=== PATIENT | female | born 1975 | race Caucasian/White ===

== ENCOUNTER 2023-01-24 09:42 | Outpatient (OUT) | payer BC, SELFPAY ==
[2023-01-24 10:08] LABS: Basophils Absolute Auto 0.1 10^3/uL (0.0-0.1); Basophils Percent Auto 1.1 % (0.2-2.0); Eosinophils Absolute Auto 0.2 10^3/uL (0.0-0.7); Hematocrit 44.6 % (36.0-48.0); Lymphocytes Absolute Auto 1.5 10^3/uL (1.2-3.8); Lymphocytes Percent Auto 26.5 % (20.5-60.0); Mean Corpuscular HGB Conc 33.6 g/dL (29.9-35.2); Mean Corpuscular Hemoglobin 30.9 pg (26.7-34.0); Mean Corpuscular Volume 91.8 fL (81.0-99.0); Mean Platelet Volume 11.2 fL (9.5-13.5); Monocytes Absolute Auto 0.5 10^3/uL (0.3-0.8); Monocytes Percent Auto 9.8 % (1.7-12.0); Neutrophils Absolute Auto 3.2 10^3/uL (1.4-6.5); Neutrophils Percent Auto 58.6 % (43.0-75.0); Platelet Count 215 10^3/uL (150-450); Red Blood Count 4.86 10^6/uL (4.20-5.40); Red Cell Distribution Width 12.3 % (11.0-15.0); White Blood Count 5.5 10^3/uL (4.0-11.0)
[2023-01-24 10:35] LABS: Amphetamine Screen Urine NEGATIVE (NEGATIVE); Barbiturates Screen Urine NEGATIVE (NEGATIVE); Benzodiazepines Screen Urine NEGATIVE (NEGATIVE); Buprenorphine Screen Urine NEGATIVE (NEGATIVE); Cannabinoid Screen Urine NEGATIVE (NEGATIVE); Cocaine Screen Urine NEGATIVE (NEGATIVE); Methadone Screen Urine NEGATIVE (NEGATIVE); Methamphetamines Screen Urine NEGATIVE (NEGATIVE); Opiate Screen Urine NEGATIVE (NEGATIVE); Oxycodone Screen Urine NEGATIVE (NEGATIVE); Phencyclidine Screen Urine NEGATIVE (NEGATIVE); Tricyclic Antidepressant Urine NEGATIVE (NEGATIVE)
[2023-01-24 10:49] LABS: Estimated Average Glucose 108 mg/dL; Glycohemoglobin A1C 5.4 % (4.5-6.2)
[2023-01-24 11:37] LABS: Alanine Aminotransferase 19 U/L (14-59); Albumin Globulin Ratio 1.2; Albumin Level 3.9 g/dL (3.4-5.0); Alkaline Phosphatase 60 U/L (46-116); Anion Gap 16.1; Aspartate Amino Transferase 14 U/L (15-37); BUN Creatinine Ratio 23.5; Bilirubin Total 0.4 mg/dL (0.2-1.0); Carbon Dioxide 28.6 mmol/L (21.0-32.0); Chloride 102 mmol/L (98-107); Chol HDL Ratio 3.5; Cholesterol 189 mg/dL (<=200); Estimated GFR (African America >60 (>=60); Estimated GFR (Non-African Ame >60 (>=60); Globulin 3.3 g/dL; Glucose 99 mg/dL (74-106); HDL Cholesterol 54 mg/dL (40-60); LDL Cholesterol Calculated 114.2 mg/dL; Potassium 3.7 mmol/L (3.5-5.1); Sodium 143 mmol/L (136-145); Total Protein 7.2 g/dL (6.4-8.2); Triglycerides 104 mg/dL (<=150); VLDL CHOLESTEROL 20.8 mg/dL
[2023-01-24 11:42] LABS: TSH W/ REFLEX FT4 5.464 (0.358-3.740)
[2023-01-24 12:17] LABS: Free T4 0.83 ng/dL (0.76-1.46)
[2023-01-25 04:07] LABS: HIV Ab/p24 Ag Screen Non Reactive (Non Reactive)
[2023-01-25 06:08] LABS: HCV Ab Non Reactive (Non Reactive)
== END 2023-01-24 09:43 | disposition home or self-care (01) ==
LOC: LAB 09:48
PROVIDERS: PCP Nurse Practitioner Primary Care; Visit Provider Nurse Practitioner Primary Care
DX: Z00.00 Encounter for general adult medical examination without abnormal findings (principal); Z11.59 Encounter for screening for other viral diseases; Z11.4 Encounter for screening for human immunodeficiency virus [HIV]; Z13.6 Encounter for screening for cardiovascular disorders; Z13.29 Encounter for screening for other suspected endocrine disorder
CPT/HCPCS: 36415; 80053; 80061; 80307; 83036; 84439; 84443; 85025; 86803; 87389

== ENCOUNTER 2023-02-07 09:16 | Outpatient (OUT) | payer BC, SELFPAY ==
--- NOTE | 2023-02-07 09:19 | MM_ITS ---
Patient Name: THONG SUAREZ MR#: [id number] : 1975 Exam Date: 02/07/2023 Ordering Doctor: JOSE GUADALUPE HERNANDEZ RADIOLOGY REPORT PROCEDURE: MM TOMOSYNTHESIS SCREENING BI COMPARISON: None. INDICATIONS: Screening Calculator Name NCI Breast Cancer Risk Assessment Tool 5 Year Breast Cancer Risk 0.90% Lifetime Breast Cancer Risk 9.30% Personal Breast Cancer No Personal Ovarian Cancer No Treatments None Family Cancers None LOCATION: [facility] BREAST COMPOSITION: Scattered areas fibroglandular density. FINDINGS: DIAGNOSTIC CATEGORY 1--NEGATIVE. Scattered benign-appearing lymph nodes are present. RIGHT BREAST: No significant suspicious finding. LEFT BREAST: No significant suspicious finding. RECOMMENDATIONS: ROUTINE MAMMOGRAM AND CLINICAL EVALUATION IN 12 MONTHS. PLEASE NOTE: A NORMAL MAMMOGRAM DOES NOT EXCLUDE THE POSSIBILITY OF BREAST CANCER. A CLINICALLY SUSPICIOUS PALPABLE LUMP SHOULD BE BIOPSIED. Dictated by: Asad Mancera MD on 02/07/2023 at 12:40 Approved by: Asad Mancera MD on 02/07/2023 at 12:41
== END 2023-02-07 09:17 | disposition home or self-care (01) ==
LOC: MAMMO 09:16
PROVIDERS: PCP Nurse Practitioner Primary Care; Visit Provider Nurse Practitioner Primary Care
DX: Z12.31 Encounter for screening mammogram for malignant neoplasm of breast (principal)
CPT/HCPCS: 77063; 77067

== ENCOUNTER 2023-02-22 07:51 | Outpatient (OUT) | payer BC, SELFPAY ==
--- NOTE | 2023-02-22 08:32 | PM.CN ---
Consult Note: HPI Data of Consult Patient: new to practice Consult date: 02/22/23 Requesting Physician: Jocelyn Mcduffie NP Primary Care Provider: JOSE GUADALUPE HERNANDEZ APRN-TEMI Consult Narrative Reason for consult: establish for bilateral hips and bilateral leg pain Narrative: Lidia Still a pleasant 47 year old female presents for evaluation and management of chronic bilateral hip and bilateral leg pain. Experiences intermittent sharp hot shooting pain. At this time 0/10. Has found benefit from tizanidine and gabapentin, has not filled this in years was utilizing an old script. Patient notes no recent PT or HEP. Has not been evaluated by NS since her L4 hemilaminectomy in 2013. [facility] but does not recall what they did for her. Patient here today to establish care. cc:: CC: Jocelyn Mcduffie NP Review of Systems ROS Status of ROS 10 or more systems reviewed and unremarkable except as noted in history and below Musculoskeletal Reports: back pain, extremity pain and joint pain Exam Constitutional Documenting provider has reviewed patient's vital signs: yes Common normals: no apparent distress, oriented x3, healthy appearing, alert and well nourished General appearance: cooperative [facility] Common normals: normocephalic, hearing grossly normal bilaterally and moist oral mucous membranes Head and scalp: normocephalic Eye Common normals: PERRL Pupil: PERRL Neck & C-Spine Common normals: full ROM General: normal visual inspection Chest Common normals: inspection of chest normal Respiratory Common normals: normal respiratory effort, no retractions and no use of accessory muscles Back & Pelvis Lumbar spine/lower back: straight leg raise negative bilaterally Sacroiliac joints: SI joint(s) abnormal (pain with bilateral MARCOS FADIR thigh thrust) Other: reports intermittent numbness weakness burning sharp hot pain that radiates from lumbar spine to anterior thighs down to feet Extremity Common normals: normal to inspection and full ROM Neuro Common normals: oriented x3, CN's II-XII intact bilaterally, moves all extremities, no focal motor deficits, no sensory deficits noted, deep tendon reflexes 2+ bilaterally and gait normal Sensorium/orientation: alert Motor exam: strength 5/5 throughout and no movement abnormalities noted Psych Common normals: mental status grossly normal, thought process normal, cooperative, affect normal, speech normal and activity/motor behavior normal Speech: normal speech Thought process: normal thought process Assessment and Plan Assessment and Plan (1) Lumbar radiculopathy: (2) Myofascial pain: (3) Obesity: Assessment and Plan: The patient was counseled that proper dietary changes and consistent participation in a home exercise plan can lead to weight loss. Weight loss can help to improve functionality in patients with chronic pain.? (4) Depression: Assessment and Plan: continue f/u with PCP Plan PT for lumbar radiculopathy MRI without contrast of lumbar spine after completion of PT continue gabapentin 300mg daily as needed and tizanidine 4mg BID PRN, will refill today f/u 3 months, sooner if needed
--- OUTSIDE RECORDS SUMMARY | 2023-02-22 10:30 | XMS_ITS | CCD ---
Author Name Unknown Address [address] [place] [address] Organization [facility] Care Team Providers Care Senior Software Analyst Name Role Phone HOUSE, DR RAMSEY Attending Unavailable HOUSE, DR RAMSEY Consulting Unavailable HOUSE, DR RAMSEY Primary Care Unavailable HOUSE, DR RAMSEY Admitting Unavailable Problems Active Problems Problem Classification Problem Date Documented Da te Episodic/Chronic Unclassified (2 sources) CONTACT W/AND (SUSP) EXPOS COVID-19; Translations: [CONTACT W/AND (SUSP) EXPOS COVID-19] Onset: 11-18-2021 Viral infection (1 source) COVID-19; Translations: [COVID-19] Onset: 11-18-2021 Past or Other Problems Problem Classification Problem Date Documented Da te Episodic/Chronic Unclassified (1 source) CONTACT W/AND (SUSP) EXPOS COVID-19; Translations: [CONTACT W/AND (SUSP) EXPOS COVID-19] Onset: 11-14-2021 Results Test Name Value Interpretation Reference Range Facil ity Covid-19 PCR (CVDTBH)on 11-03 SARS-CoV-2 (COVID-19) RNA CAMILA+probe Ql (Unsp spec) Detected Critically abnormal NOT DETECTED [facility] Comment on above: Result Comment: This test is not yet elsa roved or cleared by the [place] FDA. When there are no FDA-approved or cleared tests available, and other criteria are met, FDA can make tests available under an emergency access mechanism called an Emergency Use Authorization (EUA). The EUA for this test is supported by the Director Metabolism of Health and Human Service's (HHS's) declaration that circumstances exist to justify the emergency use of in vitro diagnostics for the detection and/or diagnosis of the virus that causes COVID-19. This EUA will remain in effect (meaning this test can be used) for the duration of the COVID-19 declaration justifying emergency of IVDs, unless it is terminated or revoked by FDA (after which the test may no longer be used). Performed By: #### [facility] #### [facility] [address] [place], [place] [address] Dr. David Jesus Encounters Encounter Date Encounter Type Care Provider Facility Start: 11-14-2021 End: 11-14-[address] ROXY OCHOA Facility: Payers Date Payer Category Payer Unknown [id number] 1960 Private Health Insurance [id number] Summary Purpose Family History No Family History Records Found Advance Directives No Advanced Directives Records Found Additional Source Comments INFORMATION SOURCE (unrecogn ized section and content) DATE CREATED AUTHOR 12/03/2021 [facility] FOR RECORDS PERTAINING TO PATIENTS WHO ARE OR HAVE BEEN ENROLLED IN A CHEMICAL DEPENDENCY/SUBSTANCEABUSE PROGRAM, SOME INFORMATION MAY BE OMITTED. This clinical summary was aggregated from multiple sources. Caution should be exercised in using it in the provision of clinical care. This summary normalizes information from multiple sources, and as a consequence, information in this document may materially change the coding, format and clinical context of patient data. In addition, data may be omitted in some cases. CLINICAL DECISIONS SHOULD BE BASED ON THE PRIMARY CLINICAL RECORDS. [employer] provides no warranty or guarantee of the accuracy or completeness of information in this document.
== END 2023-02-22 07:52 | disposition home or self-care (01) ==
LOC: PM 07:51
PROVIDERS: PCP Nurse Practitioner Primary Care; Visit Provider Nurse Practitioner
DX: M54.16 Radiculopathy, lumbar region (principal); M79.18 Myalgia, other site; E66.9 Obesity, unspecified
CPT/HCPCS: G0463

== ENCOUNTER 2024-10-05 18:32 | Emergency (ER) | payer OTHER, SELFPAY ==
--- OUTSIDE RECORDS SUMMARY | 2024-01-29 05:30 | XMS_ITS ---
Author Organization [facility] Address [address] [place], [place] [id number] Care Team Providers Care Decontamination Worker Name Role Phone Reba Varma Primary Care Provider Brittney Birch Unavailable [phone] Afshin Reardon Unavailable [phone] REASON FOR VISIT wellness Social History Sex Assigned At : Social History Observation Description Sex Assigned At Female Encounters Encounter Location Date Provider Diagnosis [facility] [address] [place] [address] 01/29/2024 Afshin Reardon Plan Of Treatment No Information Progress Notes * Lidia SUAREZDOB: [birth year] (48 yo F)Acc No.[id number]:01/29/2024 Progress Notes Patient: Lidia MAX Provider: Errol Reardon PA-C :1975 A ge:48 Y S ex:Female Date:01/29/2024 [id number] Pcp:Reba Varma Subjective: * Chief Complaints: * 1 . Wellness. * Medical History: Objective: * Vitals: Assessment: Plan: * Treatment: Care Plan: * Problems: * Billing Information: * Visit Code: * Procedure Codes: * Electronic signature of SONYA Edouard on 10/05/2024 at 06:40 PM EDT Sign off status: Pending * Provider: Errol Reardon PA-C Date: 1 03/30/2023 Generated for Dank stanley/Simón/Scooter on: 0 10/05/2024 06:40 PM EDT
--- OUTSIDE RECORDS SUMMARY | 2024-08-16 04:30 | XMS_ITS ---
Author Organization [facility] Address [address] [place] [address] Care Team Providers Care Waredresser Name Role Phone Daniele Ring Primary Care Provider [phone] REASON FOR VISIT Recheck BP Encounters Encounter Location Date Provider Diagnosis [facility] [address] [place] [address] 08/16/2024 Daniele Ring Plan Of Treatment No Information Progress Notes * NELSY SANDIP CRISTINAWILDDOB: [birth year] (48 yo F)Acc No.[id number]:08/16/2024 Progress Notes Patient: CRISTINA HOLLEYELA Appointment Provider: Bert MONTERO DO :1975 A ge:48 Y S ex:Female Date:08/16/2024 Address:[address] [place], [place] [address] Subjective: * Chief Complaints: * 1 . Recheck BP. * Medical History: Objective: * Vitals: Assessment: Plan: * Treatment: * Images: * Electronic signature of Daniele Ring DO on 10/05/2024 at 06:40 PM EDT Sign off status: Pending * Appointment Provider: Bert MONTERO DO Date: 08/16/2024 Generated for Dank stanley/Simón/Purviitting on: 10/05/2024 06:40 PM EDT
[2024-10-05 18:35] VITALS: BP 158/96; PULSE 90; TEMP 37.1; O2SAT 98; BMI 38.3
--- OUTSIDE RECORDS SUMMARY | 2024-10-05 18:40 | XMS_ITS | CCD ---
Author Organization [facility] Care Team Providers Care Sql Developer Name Role Phone HOUSE, DR RAMSEY Attending Unavailable HOUSE, DR RAMSEY Consulting Unavailable HOUSE, DR RAMSEY Primary Care Unavailable [place], DR RAMSEY Admitting Unavailable NON STAFF Primary Care Provider UnavailMD Samson Grey Jr Emergency Provider Dave - DO Enrrique LORENZO Attending Provider [facility] Primary Care Provider DO Twin Shaffer Attending Provider DO Daniele Hector Referring Provider [facility] Primary Care Provider [phone] Twin Shaffer DO Attending Provider [phone] Daniele Hector DO Referring Provider Daniele Hector DO Attending Provider [facility] Primary Care Unavaila ble Daniele Hector Referring Unavailable Twin Shaffer Admitting Unavailable [place]er Attending Unavailable Daniele Hector Referring Unavailable Twin Shaffer Admitting Unavailable Twin Sh[place]er Attending Unavailable [facility] Primary Care Unavaila ble NON STAFF Primary Care Unavailable Daves - Enrrique LORENZO Admitting Unavailable Daves - Enrrique LORENZO Attending Unavailable Daniele Hector Admitting Unavailable Daniele Hector Attending Unavailable Medications Current Medications Medication Drug Class(es) Dates Sig (Normalized) Sig (Original) Albuterol-Budesonid e (4 sources) Start: 06-26-2023 Albuterol-Budeson jaime Active 2 INH INHALATION Every 4 hours June 26, 2023 12:00am Albuterol-Budesonid e 90-80 mcg/actuation HFA aerosol inhaler (2 sources) Start: 06-26-2023 Albuterol-Budeson jaime 90-80 mcg/actuation HFA aerosol inhaler Active 2 INH INHALATION Every 4 hours as needed for shortness of breath June 26, 2023 12:00am ARIPiprazole 2 mg oral tablet (6 sources) Atypical Antipsychotic Start: 06-26-2023 take 1 tablet by mouth at bedtime Aripiprazole 2 mg tablet Active 2 MG PO Bedtime June 26, 2023 12:00am ibuprofen 600 mg oral tablet (6 sources) Nonsteroidal Anti-inflammatory Drug Start: 06-27-2023 take 1 tablet by mouth every eight hours as needed for pain Ibuprofen 600 mg tablet Active 600 MG PO Q8H as needed for pain June 27, 2023 12:00am montelukast 10 mg oral tablet (6 sources) Leukotriene Receptor Antagonist Start: 06-26-2023 take 1 tablet by mouth once daily Montelukast (Singulair) 10 mg tablet Active 10 MG PO Daily June 26, 2023 12:00am 24 hr propranolol hydrochloride 60 mg extended release oral capsule (6 sources) beta-Adrenergic Ayse Start: 06-26-2023 take 1 capsule by mouth once daily Propranolol 60 mg capsule,extended release 24 hr Active 60 MG PO Daily June 26, 2023 12:00am traZODone hydrochloride 100 mg oral tablet (6 sources) Serotonin Reuptake Inhibitor Start: 06-26-2023 take 1 tablet by mouth at bedtime as needed Trazodone 100 mg tablet Active 100 MG PO Bedtime as needed for insomnia June 26, 2023 12:00am 24 hr venlafaxine 37.5 mg extended release oral capsule (6 sources) Serotonin and Norepinephrine Reuptake Inhibitor Start: 06-26-2023 take 1 capsule by mouth once daily Venlafaxine 37.5 mg capsule,extended release 24hr Active 37.5 MG PO Daily June 26, 2023 12:00am Problems Active Problems Problem Classification Problem Date Documented Date Episodic/Chronic Asthma (1 source) Unspecified asthma, uncomplicated; Translations: [Unspecified asthma, uncomplicated] Onset: 06-04-2024 Chronic E Codes: Fall (6 sources) Fall on same level from slipping; Translations: [Fall on same level from slipping, tripping and stumbling without subsequent striking against object, initial encounter] 06-27-2023 Episodic Other screening for suspected conditions (not mental disorders or infectious disease) (2 sources) Encounter for screening for malignant neoplasm of cervix; Translations: [Encounter for screening for cardiovascular disorders] Onset: 01-04-2024 Episodic Unclassified (2 sources) CONTACT W/AND (SUSP) EXPOS COVID-19; Translations: [CONTACT W/AND (SUSP) EXPOS COVID-19] Onset: 11-18-2021 Unclassified (1 source) Obesity, class 2; Translations: [Obesity, class 2] Onset: 01-04-2024 Viral infection (1 source) COVID-19; Translations: [COVID-19] Onset: 11-18-2021 Past or Other Problems Problem Classification Problem Date Documented Da te Episodic/Chronic Superficial injury; contusion (19 sources) Contusion of multiple sites of upper limb; Translations: [Contusion of right upper arm, initial encounter] Onset: 07-26-2023 06-27-2023 Episodic Unclassified (1 source) CONTACT W/AND (SUSP) EXPOS COVID-19; Translations: [CONTACT W/AND (SUSP) EXPOS COVID-19] Onset: 11-14-2021 Results Test Name Value Interpretation Reference Range Facility IGP,Aptima HPV,CtNg Age Gdln on 06-30-2024 IGP, Age Gdln Note Normal . [facility] Comment on above: Order Comment: Marimar aguirre for Exam Cervical cancer screening Specimen Comment: [id number] Result Comment: TEST S RESULT FLAG UNITS REF RANGE LAB Clinician Provided Cytology Information No. of containers..01 ThinPrep Vial Age Algo ACOG Ade... 30-65 01 FLAG LEGEND: L-Low Normal,H-High Normal,LL-Alert Low,HH-Alert High <-Panic Low,>-Panic High,A-Abnormal,AA-Critical Abnormal Performed at: 01 =[address] [id number] Ingrid Tomlin MD, Performed By: #### P AP [id number] #### [facility] , PAP HPV HR Negative Normal Negative [facility] Comment on above: Order Comment: Reaso n for Exam Cervical cancer screening Specimen Comment: [id number] Result Comment: This nucleic acid amplification test detects fourteen high- risk HPV types (16,18,31,33,35,39,45,51,52,56,58,59,66,68) without differentiation. Performed at: =[facility] [id number] Fiber Optic Assembler: Ingrid Tomlin MD, Phone: [phone] Performed at: [facility] [id number] Fiber Optic Assembler: Ingrid Tomlin MD, Phone: [phone] PERFORMED BY: [place] [address] [place] [address] PATHOLOGIST BIOFUELS OPERATIONS MANAGER CIARAN SALCEDO M.D. Performed By: #### P AP [id number] #### [facility] , Pap Image Guided Note Normal . [facility] Comment on above: Order Comment: Reaso n for Exam Cervical cancer screening Specimen Comment: [id number] Result Comment: TEST S RESULT FLAG UNITS REF RANGE LAB DIAGNOSIS: 02 NEGATIVE FOR INTRAEPITHELIAL LESION OR MALIGNANCY. THIS SPECIMEN WAS RESCREENED PART OF OUR PATTERN SCRATCHER PROGRAM. Specimen adequacy: 02 Satisfactory for evaluation. Endocervical and/or squamous metaplastic cells (endocervical component) are present. Performed by: 02 Cornel Wakefield, High Worker (ASC) QC reviewed by: 02 Alayna Paz, High Worker (ASC) . 02 Note: Note 02 The Pap smear is a screening test designed to aid in the detection of premalignant and malignant conditions of the uterine cervix. It is not a diagnostic procedure and should not be used as the sole means of detecting cervical cancer. Both false-positive and false-negative reports do occur. Test Methodology: Note 02 This liquid based ThinPrep(R) pap test was screened with the use of an image guided system. HPV Genotype Reflex Note 02 Criteria not met, HPV Genotype not performed. FLAG LEGEND: L-Low Normal,H-High Normal,LL-Alert Low,HH-Alert High <-Panic Low,>-Panic High,A-Abnormal,AA-Critical Abnormal Performed at: 02 [facility] [address] [address] Ingrid Tomlin MD, Performed By: #### P AP [id number] #### [facility] , Alanine aminotransferase [En zymatic activity/volume] in Serum or PlasmaOrdered By: Daniele Hector on 01-04-2024 ALT [Catalytic activity/Vol] 11 U/L Normal 7-52 [facility] Comment on above: Order Comment: Reaso n for Exam Screening for cardiovascular condition;Obesity, class 2 Performed By: #### C BC, LIPID, EBS A1C, CMP wRFX A1C #### [address] Albumin [Mass/volume] in Ser um or Plasma by Bromocresol green (BCG) dye binding methoOrdered By: Daniele Hector on 01-04-2024 Albumin BCG dye [Mass/Vol] 4.1 g/dL 3.5-5.7 [facility] Alkaline phosphatase [Enzyma tic activity/volume] in Serum or PlasmaOrdered By: Daniele Hector on 01-04-2024 ALP [Catalytic activity/Vol] 50 U/L Normal 34-104 [facility] Comment on above: Order Comment: Reaso n for Exam Screening for cardiovascular condition;Obesity, class 2 Performed By: #### C BC, LIPID, EBS A1C, CMP wRFX A1C #### [facility] [address] Aspartate aminotransferase [ Enzymatic activity/volume] in Serum or PlasmaOrdered By: Daniele Hector on 01-04-2024 AST [Catalytic activity/Vol] 15 U/L Normal 13-39 [facility] Comment on above: Order Comment: Reaso n for Exam Screening for cardiovascular condition;Obesity, class 2 Performed By: #### C BC, LIPID, EBS A1C, CMP wRFX A1C #### [facility] [address] Automated basophil %Ordered By: Daniele Hector on 01-04-2024 Basophils/100 WBC (Bld) 1.2 % Normal . [facility] Comment on above: Order Comment: Reaso n for Exam Screening for cardiovascular condition;Obesity, class 2 Performed By: #### C BC, LIPID, EBS A1C, CMP wRFX A1C #### [facility] [address] [place] [address] [place] Automated basophil countOrde red By: Daniele Hector on 01-04-2024 Basophils (Bld) [#/Vol] 0.1 10*3/uL Normal 0.0-0.2 [facility] Comment on above: Order Comment: Reaso n for Exam Screening for cardiovascular condition;Obesity, class 2 Result Comment: PERF ORMED BY: [place] [address] PATHOLOGIST BIOFUELS OPERATIONS MANAGER CHELSI FOY M.D. Performed By: #### C BC, LIPID, EBS A1C, CMP wRFX A1C #### [facility] [address] Automated blood monocyte cou ntOrdered By: Daniele Hector on 01-04-2024 Monocytes (Bld) [#/Vol] 0.6 10*3/uL Normal 0.0-0.8 [facility] Comment on above: Order Comment: Reaso n for Exam Screening for cardiovascular condition;Obesity, class 2 Performed By: #### C BC, LIPID, EBS A1C, CMP wRFX A1C #### [facility] [address] Automated eosinophil %Ordere d By: Daniele Hector on 01-04-2024 Eosinophils/100 WBC (Bld) 6.4 % Normal . [facility] Comment on above: Order Comment: Reaso n for Exam Screening for cardiovascular condition;Obesity, class 2 Performed By: #### C BC, LIPID, EBS A1C, CMP wRFX A1C #### [facility] [address] Automated eosinophil countOr dered By: Daniele Hector on 01-04-2024 Eosinophils (Bld) [#/Vol] 0.3 10*3/uL Normal 0.0-0.45 [facility] Comment on above: Order Comment: Reaso n for Exam Screening for cardiovascular condition;Obesity, class 2 Performed By: #### C BC, LIPID, EBS A1C, CMP wRFX A1C #### [facility] [address] Automated monocyte %Ordered By: Daniele Hector on 01-04-2024 Monocytes/100 WBC (Bld) 11.0 % Normal . [facility] Comment on above: Order Comment: Reaso n for Exam Screening for cardiovascular condition;Obesity, class 2 Performed By: #### C BC, LIPID, EBS A1C, CMP wRFX A1C #### [facility] [address] Automated neutrophil %Ordere d By: Daniele Hector on 01-04-2024 Neutrophils/100 WBC (Bld) 46.3 % Normal . [facility] Comment on above: Order Comment: Reaso n for Exam Screening for cardiovascular condition;Obesity, class 2 Performed By: #### C BC, LIPID, EBS A1C, CMP wRFX A1C #### [facility] [address] Bilirubin.total [Mass/volume ] in Serum or PlasmaOrdered By: Daniele Hector on 01-04-2024 Bilirubin [Mass/Vol] 0.5 mg/dL Normal 0.3-1.0 [facility] Comment on above: Order Comment: Reaso n for Exam Screening for cardiovascular condition;Obesity, class 2 Performed By: #### C BC, LIPID, EBS A1C, CMP wRFX A1C #### [facility] [address] CMP with reflex to A1Con Albumin [Mass/Vol] 4.1 g/dL Normal 3.5-5.7 [facility] Comment on above: Order Comment: Reaso n for Exam Screening for cardiovascular condition;Obesity, class 2 Performed By: #### C BC, LIPID, EBS A1C, CMP wRFX A1C #### [facility] [address] [place] [address] GFR/1.73 sq M.predicted MDRD (S/P/Bld) [Vol rate/Area] mL/min/{1.73_m2} Normal [facility] Comment on above: Order Comment: Reaso n for Exam Screening for cardiovascular condition;Obesity, class 2 Performed By: #### C BC, LIPID, EBS A1C, CMP wRFX A1C #### [facility] [address] [place] [address] [place] Calcium [Mass/volume] in Ser um or PlasmaOrdered By: Daniele Hector on 01-04-2024 Calcium [Mass/Vol] 9.1 mg/dL Normal 8.6-10.3 [facility] Comment on above: Order Comment: Reaso n for Exam Screening for cardiovascular condition;Obesity, class 2 Performed By: #### C BC, LIPID, EBS A1C, CMP wRFX A1C #### [facility] [address] [place] [id number] [place] Carbon dioxide, total [Moles /volume] in Serum or PlasmaOrdered By: Daniele Hector on 01-04-2024 CO2 [Moles/Vol] 28.6 mmol/L Normal 21.0-31.0 [facility] Comment on above: Order Comment: Reaso n for Exam Screening for cardiovascular condition;Obesity, class 2 Performed By: #### C BC, LIPID, EBS A1C, CMP wRFX A1C #### [facility] [address] [place] [id number] [place] Chloride [Moles/volume] in S enid or PlasmaOrdered By: Daniele Hector on 01-04-2024 Chloride [Moles/Vol] 105 mmol/L Normal 98-107 [facility] Comment on above: Order Comment: Reaso n for Exam Screening for cardiovascular condition;Obesity, class 2 Performed By: #### C BC, LIPID, EBS A1C, CMP wRFX A1C #### [facility] [address] [place] [id number] [place] Cholesterol [Mass/volume] in Serum or PlasmaOrdered By: Daniele Hector on 01-04-2024 Cholesterol [Mass/Vol] 204 mg/dL High 140-200 [facility] Comment on above: Chol less than 200 m g/dl low riskChol 201-239 mg/dl borderline riskChol 240 mg/dl and greater high risk Order Comment: Reaso n for Exam Screening for cardiovascular condition;Obesity, class 2 Result Comment: Chol less than 200 mg/dl low risk Chol 201-239 mg/dl borderline risk Chol 240 mg/dl and greater high risk Performed By: #### C BC, LIPID, EBS A1C, CMP wRFX A1C #### [facility] [address] [place] [address] [place] Cholesterol in LDL Calc [Mas s/Vol]Ordered By: Daniele Hector on 01-04-2024 Cholesterol in LDL [Mass/Vol] 133 mg/dL High 0-100 [facility] Comment on above: LDL ATP III CLASSIFI CATIONLDL less than 100 mg/dL OptimalLDL 100-129 mg/dL Near or above optimalLDL 130-159 mg/dL Borderline highLDL 160-189 mg/dL HighLDL greater than 189 mg/dL Very high Cholesterol in VLDL Calc [Ma ss/Vol]Ordered By: Daniele Hector on 01-04-2024 Cholesterol in VLDL [Mass/Vol] 20 mg/dL [facility] Complete Blood Count Auto Di ffon 01-04-2024 Mean Corpuscular HGB Conc 33.7 g/dL Normal 32.0-35.0 [facility] Comment on above: Order Comment: Reaso n for Exam Screening for cardiovascular condition;Obesity, class 2 Performed By: #### C BC, LIPID, EBS A1C, CMP wRFX A1C #### [facility] [address] NRBC% 0.1 /100{WBC} Normal 0-0.5 [facility] Comment on above: Order Comment: Reaso n for Exam Screening for cardiovascular condition;Obesity, class 2 Performed By: #### C BC, LIPID, EBS A1C, CMP wRFX A1C #### [facility] [address] Creatinine [Mass/volume] in Serum or PlasmaOrdered By: Daniele Hector on 01-04-2024 Creatinine [Mass/Vol] 0.90 mg/dL Normal 0.60-1.20 [facility] Comment on above: Order Comment: Reaso n for Exam Screening for cardiovascular condition;Obesity, class 2 Performed By: #### C BC, LIPID, EBS A1C, CMP wRFX A1C #### [facility] [address] EBS A1C with Estimated Ave G luon 01-04-2024 Glucose [Mass/Vol] 114 mg/dL Normal [facility] Comment on above: Result Comment: PERF ORMED BY: [place] [address] PATHOLOGIST BIOFUELS OPERATIONS MANAGER CHELSI FOY M.D. Performed By: #### C BC, LIPID, EBS A1C, CMP wRFX A1C #### [facility] [address] EBS A1C with Estimated Ave G luOrdered By: Daniele Hector on 01-04-2024 HbA1c (Bld) [Mass fraction] 5.6 % Normal 4.3-5.6 [facility] Comment on above: Increased risk for d iabetes: 5.7 - 6.4diabetes: >6.4glycemic control for adults with diabetes: <7.0 Result Comment: Incr eased risk for diabetes: 5.7 - 6.4 diabetes: >6.4 glycemic control for adults with diabetes: <7.0 Performed By: #### C BC, LIPID, EBS A1C, CMP wRFX A1C #### [facility] [address] Erythrocyte distribution wid th [Ratio] by Automated countOrdered By: Daniele Hector on 01-04-2024 Erythrocyte distribution width (RBC) [Ratio] 13.4 % Normal 11.9-15.3 [facility] Comment on above: Order Comment: Reaso n for Exam Screening for cardiovascular condition;Obesity, class 2 Performed By: #### C BC, LIPID, EBS A1C, CMP wRFX A1C #### [address] Erythrocytes [#/volume] in B lood by Automated countOrdered By: Daniele Hector on 01-04-2024 RBC (Bld) [#/Vol] 5.01 10*6/uL High 3.60-5.00 [facility] Comment on above: Order Comment: Reaso n for Exam Screening for cardiovascular condition;Obesity, class 2 Performed By: #### C BC, LIPID, EBS A1C, CMP wRFX A1C #### [address] Glucose [Mass/volume] in Ser um or PlasmaOrdered By: Daniele Hector on 01-04-2024 Glucose [Mass/Vol] 102 mg/dL High 70-100 [facility] Comment on above: ADA recommended refe rence range Order Comment: Reaso n for Exam Screening for cardiovascular condition;Obesity, class 2 Result Comment: ADA recommended reference range Performed By: #### C BC, LIPID, EBS A1C, CMP wRFX A1C #### [facility] [address] [place] [id number] [facility] Glucose mean value [Mass/vol ume] in Blood Estimated from glycated hemoglobinOrdered By: Daniele Hector on 01-04-2024 Average glucose Estimated from glycated hemoglobin (Bld) [Mass/Vol] 114 mg/dL [facility] Hematocrit [Volume Fraction] of Blood by Automated countOrdered By: Daniele Hector on 01-04-2024 Hematocrit (Bld) [Volume fraction] 46.1 % Normal 34.0-46.4 [facility] Comment on above: Order Comment: Reaso n for Exam Screening for cardiovascular condition;Obesity, class 2 Performed By: #### C BC, LIPID, EBS A1C, CMP wRFX A1C #### [facility] [address] Hemoglobin [Mass/volume] in BloodOrdered By: Daniele Hector on 01-04-2024 Hemoglobin (Bld) [Mass/Vol] 15.5 g/dL High 11.8-15.4 [facility] Comment on above: Order Comment: Reaso n for Exam Screening for cardiovascular condition;Obesity, class 2 Performed By: #### C BC, LIPID, EBS A1C, CMP wRFX A1C #### [facility] [address] [place] [id number] [facility] Leukocytes [#/volume] correc nolan for nucleated erythrocytes in Blood by Automated counOrdered By: Daniele Hector on 01-04-2024 WBC corrected for nucl RBC Auto (Bld) [#/Vol] 5.1 10*3/uL 3.8-11.6 [facility] Leukocytes [#/volume] in Blo od by Automated countOrdered By: Daniele Hector on 01-04-2024 WBC (Bld) [#/Vol] 5.1 10*3/uL Normal 3.8-11.6 [facility] Comment on above: Order Comment: Reaso n for Exam Screening for cardiovascular condition;Obesity, class 2 Performed By: #### C BC, LIPID, EBS A1C, CMP wRFX A1C #### [facility] [address] [place] [id number] [facility] Lipid Panelon 01-04-2024 LDL Cholesterol,Calculated 133 mg/dL High 0-100 [facility] Comment on above: Order Comment: Reaso n for Exam Screening for cardiovascular condition;Obesity, class 2 Result Comment: LDL ATP III CLASSIFICATION LDL less than 100 mg/dL Optimal LDL 100-129 mg/dL Near or above optimal LDL 130-159 mg/dL Borderline high LDL 160-189 mg/dL High LDL greater than 189 mg/dL Very high Performed By: #### C BC, LIPID, EBS A1C, CMP wRFX A1C #### [facility] [address] [place] [address] [place] Triglyceride w/Reflex 100 mg/dL Normal 0-149 [facility] Comment on above: Order Comment: Reaso n for Exam Screening for cardiovascular condition;Obesity, class 2 Result Comment: TRIG ATP III CLASSIFICATION TRIG less than 150 mg/dL Normal TRIG 150-199 mg/dL Borderline high TRIG 200-500 mg/dL High TRIG greater than 500 mg/dL Very high Standard traceable to the Center for Disease Conrtrol and Prevention (CDC) test method. Performed By: #### C BC, LIPID, EBS A1C, CMP wRFX A1C #### [facility] [address] [place] [address] [place] VLDL CHOLESTEROL 20 mg/dL Normal [facility] Comment on above: Order Comment: Reaso n for Exam Screening for cardiovascular condition;Obesity, class 2 Performed By: #### C BC, LIPID, EBS A1C, CMP wRFX A1C #### [facility] [address] [place] [address] [place] Lymphocytes [#/volume] in Bl ood by Automated countOrdered By: Daniele Hector on 01-04-2024 Lymphocytes (Bld) [#/Vol] 1.8 10*3/uL Normal 1.00-4.8 [facility] Comment on above: Order Comment: Reaso n for Exam Screening for cardiovascular condition;Obesity, class 2 Performed By: #### C BC, LIPID, EBS A1C, CMP wRFX A1C #### [facility] [address] [place] [id number] [place] Lymphocytes/100 leukocytes i n Blood by Automated countOrdered By: Daniele Hector on 01-04-2024 Lymphocytes/100 WBC (Bld) 35.1 % Normal . [facility] Comment on above: Order Comment: Reaso n for Exam Screening for cardiovascular condition;Obesity, class 2 Performed By: #### C BC, LIPID, EBS A1C, CMP wRFX A1C #### [facility] [address] [place] [address] MCH [Entitic mass] by Automa nolan countOrdered By: Daniele Hector on 01-04-2024 MCH (RBC) [Entitic mass] 31.0 pg Normal 24.7-34.3 [facility] Comment on above: Order Comment: Reaso n for Exam Screening for cardiovascular condition;Obesity, class 2 Performed By: #### C BC, LIPID, EBS A1C, CMP wRFX A1C #### [facility] [address] [place] [address] MCHC Auto (RBC) [Mass/Vol]Or dered By: Daniele Hector on 01-04-2024 MCHC (RBC) [Mass/Vol] 33.7 g/dL 32.0-35.0 [facility] MCV [Entitic volume] by Auto mated countOrdered By: Daniele Hector on 01-04-2024 MCV (RBC) [Entitic vol] 91.9 fL Normal 80-100 [facility] Comment on above: Order Comment: Reaso n for Exam Screening for cardiovascular condition;Obesity, class 2 Performed By: #### C BC, LIPID, EBS A1C, CMP wRFX A1C #### [facility] [address] [place] [address] Neutrophils [#/volume] in Bl ood by Automated countOrdered By: Daniele Hector on 01-04-2024 Neutrophils (Bld) [#/Vol] 2.4 10*3/uL Normal 1.8-7.7 [facility] Comment on above: Order Comment: Reaso n for Exam Screening for cardiovascular condition;Obesity, class 2 Performed By: #### C BC, LIPID, EBS A1C, CMP wRFX A1C #### [facility] [address] [place] [address] No Panel InformationOrdered By: Daniele Hector on 01-04-2024 Estimated GFR (CKD-EPI) > 60.0 mL/Min [facility] Creatinine Clearance (Chem N/A [facility] Nucleated erythrocytes [Pres ence] in Blood by Automated countOrdered By: Daniele Hector on 01-04-2024 Nucleated RBC Auto Ql (Bld) 0.1 /100{WBC} 0-0.5 [facility] Platelet mean volume [Entiti c volume] in Blood by Automated countOrdered By: Daniele Hector on 01-04-2024 Platelet mean volume (Bld) [Entitic vol] 9.2 fL Normal 6.3-10.7 [facility] Comment on above: Order Comment: Reaso n for Exam Screening for cardiovascular condition;Obesity, class 2 Performed By: #### C BC, LIPID, EBS A1C, CMP wRFX A1C #### [facility] [address] [place] [address] [place] Platelets [#/volume] in Bloo d by Automated countOrdered By: Daniele Hector on 01-04-2024 Platelets (Bld) [#/Vol] 210 10*3/uL Normal 150-450 [facility] Comment on above: Order Comment: Reaso n for Exam Screening for cardiovascular condition;Obesity, class 2 Performed By: #### C BC, LIPID, EBS A1C, CMP wRFX A1C #### [facility] [facility] [address] [place] [address] [place] Potassium [Moles/volume] in Serum or PlasmaOrdered By: Daniele Hector on 01-04-2024 Potassium [Moles/Vol] 3.9 mmol/L Normal 3.5-5.1 [facility] Comment on above: Order Comment: Reaso n for Exam Screening for cardiovascular condition;Obesity, class 2 Performed By: #### C BC, LIPID, EBS A1C, CMP wRFX A1C #### [facility] [address] [place] [address] [place] Protein [Mass/volume] in Ser um or PlasmaOrdered By: Daniele Hector on 01-04-2024 Protein [Mass/Vol] 6.6 g/dL Normal 6.4-8.9 [facility] Comment on above: Order Comment: Reaso n for Exam Screening for cardiovascular condition;Obesity, class 2 Performed By: #### C BC, LIPID, EBS A1C, CMP wRFX A1C #### [facility] [address] Serum globulin measurement b y calculation (mass/volume)Ordered By: Daniele Hector on 01-04-2024 Globulin (S) [Mass/Vol] 2.5 g/dL Normal [facility] Comment on above: Order Comment: Reaso n for Exam Screening for cardiovascular condition;Obesity, class 2 Performed By: #### C BC, LIPID, EBS A1C, CMP wRFX A1C #### [facility] [address] [place] [address] Serum or plasma albumin/glob ulin mass ratioOrdered By: Daniele Hector on 01-04-2024 Albumin/Globulin [Mass ratio] 1.6 {ratio} Normal [facility] Comment on above: Order Comment: Reaso n for Exam Screening for cardiovascular condition;Obesity, class 2 Performed By: #### C BC, LIPID, EBS A1C, CMP wRFX A1C #### [facility] [address] [place] [address] Serum or plasma anion gap de terminationOrdered By: Daniele Hector on 01-04-2024 Anion gap [Moles/Vol] 10.3 mmol/L Normal 6.0-15.0 [facility] Comment on above: Order Comment: Reaso n for Exam Screening for cardiovascular condition;Obesity, class 2 Performed By: #### C BC, LIPID, EBS A1C, CMP wRFX A1C #### [facility] [address] [place] [address] Serum or plasma high density lipoprotein (HDL) cholesterol measurementOrdered By: Daniele Hector on 01-04-2024 Cholesterol in HDL [Mass/Vol] 51 mg/dL Normal 23-92 [facility] Comment on above: HDL CHOL ATP-III CLA SSIFICATION Cardiovascular RiskHDL > or equal to 60 mg/dL LOWHDL < 40 mg/dL HIGH Order Comment: Reaso n for Exam Screening for cardiovascular condition;Obesity, class 2 Result Comment: HDL CHOL ATP-III CLASSIFICATION Cardiovascular Risk HDL > or equal to 60 mg/dL LOW HDL < 40 mg/dL HIGH Performed By: #### C BC, LIPID, EBS A1C, CMP wRFX A1C #### [facility] [address] Serum or plasma total choles terol/high density lipoprotein (HDL) cholesterol mass ratOrdered By: Daniele Hector on 01-04-2024 Cholesterol.total/Jessica sterol in HDL [Mass ratio] 4.0 {ratio} Normal <5.0 [facility] Comment on above: Order Comment: Reaso n for Exam Screening for cardiovascular condition;Obesity, class 2 Result Comment: PERF ORMED BY: [place] [address] PATHOLOGIST [employer] MANAGER CHELSI FOY M.D. Performed By: #### C BC, LIPID, EBS A1C, CMP wRFX A1C #### [facility] [address] Sodium [Moles/volume] in Ser um or PlasmaOrdered By: Daniele Hector on 01-04-2024 Sodium [Moles/Vol] 140 mmol/L Normal 136-145 [facility] Comment on above: Order Comment: Reaso n for Exam Screening for cardiovascular condition;Obesity, class 2 Performed By: #### C BC, LIPID, EBS A1C, CMP wRFX A1C #### [facility] [address] Triglyceride [Mass/volume] i n Serum or PlasmaOrdered By: Daniele Hector on 01-04-2024 Triglyceride [Mass/Vol] 100 mg/dL 0-149 [facility] Comment on above: TRIG ATP III CLASSIF ICATIONTRIG less than 150 mg/dL NormalTRIG 150-199 mg/dL Borderline highTRIG 200-500 mg/dL High TRIG greater than 500 mg/dL Very highStandard traceable to the Center for Disease Conrtrol and Prevention (CDC) test method. Urea nitrogen [Mass/volume] in Serum or PlasmaOrdered By: Daniele Hector on 01-04-2024 Urea nitrogen [Mass/Vol] 14 mg/dL Normal 7-25 [facility] Comment on above: Order Comment: Reaso n for Exam Screening for cardiovascular condition;Obesity, class 2 Performed By: #### C BC, LIPID, EBS A1C, CMP wRFX A1C #### [facility] [address] Covid-19 PCR (CVDTB)on 11-03 SARS-CoV-2 (COVID-19) RNA CAMILA+probe Ql (Unsp spec) Detected Critically abnormal NOT DETECTED [facility] Comment on above: Result Comment: This test is not yet approved or cleared by the [place] FDA. When there are no FDA-approved or cleared tests available, and other criteria are met, FDA can make tests available under an emergency access mechanism called an Emergency Use Authorization (EUA). The EUA for this test is supported by the [place] of Health and Human Service's (HHS's) declaration [...] longer be used). Performed By: #### C VDTBH #### [facility] [address] [address] [address] David Jesus Vital Signs Date Time Vital Sign Value Performing Clinician Joyce espinoza 06-26-2023 23:18-0400 Body height 165.1 cm [facility] 06-26-2023 23:18-0400 Body temperature 98.4 [degF] [facility] 06-26-2023 23:18-0400 Body weight 104.5 kg [facility] 06-26-2023 23:18-0400 Diastolic blood pressure 87 mm[Hg] [facility] 06-26-2023 23:18-0400 Heart rate 59 /min [facility] 06-26-2023 23:18-0400 Respiratory rate 17 /min [facility] 06-26-2023 23:18-0400 SaO2% (BldA) [Mass fraction] 97 % [facility] 06-26-2023 23:18-0400 Systolic blood pressure 140 mm[Hg] [facility] Encounters Encounter Date Encounter Type Care Provider Facility Start: 06-30-2024 End: 06-30-2024 ambulatory Services [facility] Work Phone: [facility] Work Phone: Start: 06-30-2024 End: 06-30-2024 Departed Referred Services Family [facility] Work Phone: [facility] Start: 06-04-2024 Non-patient / Non-visit Servic es [facility] Work Phone: [facility] Work Phone: Start: 06-04-2024 End: 06-04-2024 Patient encounter procedure Services [facility] Work Phone: [facility] Work Phone: Start: 06-04-2024 End: 06-04-2024 ambulatory Services [facility] Work Phone: [facility] Work Phone: Start: 01-04-2024 End: 01-04-2024 Patient encounter procedure Services [facility] Work Phone: [facility] Work Phone: Start: 01-04-2024 End: 01-04-2024 ambulatory Services [facility] Work Phone: [facility] Work Phone: Start: 07-26-2023 End: 07-26-2023 ambulatory NON STAFF [facility] Work Phone: Start: 07-26-2023 End: 07-26-2023 Patient encounter procedure [facility] [address] Work Phone: Start: 07-05-2023 End: 07-05-2023 ambulatory NON STAFF [facility] Work Phone: Start: 07-05-2023 End: 07-05-2023 Patient encounter procedure [facility] [address] Work Phone: Start: 06-28-2023 End: 06-28-2023 Patient encounter procedure [facility] [address] Work Phone: Start: 06-26-2023 End: 06-27-2023 Emergency department patient visit [facility] Work Phone: Start: 11-14-2021 End: 11-14-[address] ROXY OCHOA Facility:H1 Procedures Date Procedure Procedure Detail Performing Clinician Start: 06-27-2023 Plain X-ray of right hip Start: 06-26-2023 Plain X-ray of right elbow Start: 06-26-2023 Plain X-ray of right shoulder Start: 06-26-2023 X-ray of right knee Plan of Treatment Date Care Activity Detail Author Start: 06-27-2023 Plain X-ray of right hip XR hi p RT min 2V(w/wo pelvis)* [facility] Start: 06-27-2023 XR Hip - right 2 Views [facility] Start: 06-26-2023 Plain X-ray of right elbow XR elbow RT min 3V* [facility] Start: 06-26-2023 Plain X-ray of right shoulder XR shoulder RT min 2V* [facility] Start: 06-26-2023 X-ray of right knee XR knee RT 4V* [facility] Start: 06-26-2023 XR Elbow - right GE 3 Views [facility] Start: 06-26-2023 XR Knee - right 4 Views [facility] Start: 06-26-2023 XR Shoulder - right Views [facility] Chlamydia trachomati s rRNA [Presence] in Cervix by CAMILA with probe detection [facility] Human papilloma viru s 16+18+31+33+35+39+45+51+52 +56+58+59+66+68 DNA [Presence] in Cervix by Probe with signal amplification [facility] Human papilloma viru s 16+18+31+33+35+39+45+51+52 +56+58+59+68 DNA [Presence] in Cervix by Probe with signal amplification [facility] Neisseria gonorrhoea e rRNA [Presence] in Cervix by CAMILA with probe detection [facility] Patient Education Minor Contusion ED [facility] Work Phone: Patient referral [facility] Work Phone: [facility] Payers Date Payer Category Payer Unknown [id number] 2023 Self-pay 2023 Unknown [id number] 2023 Worker's Compensation [id number] 1975 Unknown [id number] [id number] 1959 Private Health Insurance [id number] Unknown [id number] [id number] [id number] Unknown [id number] 2.16.8 [id number] Unknown [id number] 2.16.8 [id number] Unknown [id number] [id number] [id number] Social History Date Type Detail Facility Start: 06-27-2023 Tobacco smoking status NHIS Smoker (finding) [facility] Start: 1975 Sex Assigned At Female [facility] Start: 06-05-2024 End: 07-01-2024 Sex Female (finding) [facility] NEGATED: Highlighted row Fir [facility] Procedure note 06-04-2024 Note Date & Type Note Facility 06-04-2024 [facility] Evaluation note Note Date & Type Note Facility Evaluation note No assessment information availa ble [facility] Work Phone: Hospital Discharge instructions Note Date & Type Note Facility Hospital Discharge instructions Additional Instructions There is no fracture or other significant injury seen on your x-rays. You will need to follow-up with [facility]. The number has been provided. Call in the morning to make a follow-up appointment. [facility] Work Phone: Summary Purpose Family History No Family History Records Found Relationship Condition Age at Onset Recorded Date/T cameron father Diabetes mellitus Unknown Family history of mental disorder Unknown Hypertension Unknown Not Specified Hypertension Unknown Diabetes mellitus Unknown Relationship Condition Age at Onset Recorded Date/T cameron father Diabetes mellitus Unknown Family history of mental disorder Unknown Hypertension Unknown mother Hypertension Unknown Diabetes mellitus Unknown Advance Directives No Advanced Directives Records Found Advance Directive Response Recorded Date/ Time Advance Directives No June 26 1:44am Chief Complaint and Reason for Visit Chief Complaint Fall [facility] Chief Complaint Fall [facility] S40.021A, S80.01XA, S70.01XA, S50.01XA S40.021A, S80.01XA, S70.01XA, S50.01XA Chief Complaint Fall ICO [facility] a[facility] S40.021A, S80.01XA, S70.01XA, S50.01XA S40.021A, S80.01XA, S70.01XA, S50.01XA S40.021A, S80.01XA, S70.01XA, S50.01XA Chief Complaint Z13.6 E66.812 Chief Complaint Admit Date June 04, 2024 1:40 pm June 04, 2024 4:12 pm Additional Source Comments INFORMATION SOURCE (unrecogn ized section and content) DATE CREATED AUTHOR 12/03/2021 [facility] DATE CREATED AUTHOR AUTHOR'S ORGANIZ ATION 07/10/2024 [facility] Care Teams (unrecognized sec tion and content) Team Status: Active Member Role Status Dates NON STAFF Primary Care Provider Active Team Status: Inactive Member Role Status Dates NON STAFF Primary Care Provider Active Start: June 26, 2023 End: June 27, 2023 Samson Christina Jr, MD Emergency Provider Active Start: June 26, 2023 End: June 27, 2023 Team Status: Inactive Member Role Status Dates NON STAFF Primary Care Provider Active Start: June 28, 2023 End: June 28, 2023 Enrrique Miramontes - BJ , DO [facility] Attending Provider Active Start: June 28, 2023 End: June 28, 2023 Team Status: Inactive Member Role Status Dates NON STAFF Primary Care Provider Active Start: July 05, 2023 End: July 05, 2023 Enrrique Miramontes - [facility] , DO [facility] Attending Provider Active Start: July 05, 2023 End: July 05, 2023 Team Status: Inactive Member Role Status Dates NON STAFF Primary Care Provider Active Start: July 26, 2023 End: July 26, 2023 Enrrique Miramontes - [facility] , DO [facility] Attending Provider Active Start: July 26, 2023 End: July 26, 2023 Team Status: Active Member Role Status Dates Services [facility] Primary Care Provider Active Team Status: Inactive Member Role Status Dates Services [facility] Primary Care Provider Active Start: January 04, 2024 End: January 04, 2024 Twin Shaffer DO Attending Provider Active Start : January 04, 2024 End: January 04, 2024 Daniele Hector DO RES Referring Provider Active Start: January 04, 2024 End: January 04, 2024 Team Status: Inactive Member Role Status Dates Services [facility] Primary Care Provider Active Start: June 04, 2024 End: June 04, 2024 Twin Shaffer DO Attending Provider Active Start : June 04, 2024 End: June 04, 2024 Daniele Hector , DO RES Referring Provider Active Start: June 04, 2024 End: June 04, 2024 Team Status: Active Member Role Status Dates Services [facility] Primary Care Provider Active Start: June 04, 2024 Twin Shaffer DO Other Provider Active Start: 2024 Daniele Hector DO RES Referring Provider Active Start: June 04, 2024 Bhargav Boland MD Attending Provider Active Start: June 04, 2024 Team Status: Inactive Member Role Status Dates Daniele Hector DO RES Attending Provider Active Start: June 30, 2024 End: June 30, 2024 Goals (unrecognized section and content) Goals may be documented in a n alternate sectionGoals may be documented in an alternate sectionGoals may be documented in an alternate sectionGoals may be documented in an alternate sectionGoals may be documented in an alternate sectionGoals may be documented in an alternate section FOR RECORDS PERTAINING TO PATIENTS WHO ARE [...] BE BASED ON THE PRIMARY CLINICAL RECORDS. [facility] provides no warranty or guarantee of the accuracy or completeness of information in this document.
--- OUTSIDE RECORDS SUMMARY | 2024-10-05 18:41 | XMS_ITS | Patient Health Record ---
Author Organization [facility] Servic es Address [address] [place] [address] Care Team Providers Care Etl Informatica Architect Name Role Phone SalasDaniele atkins Primary Care Provider [phone] Mirta Ash Unavailable [phone] Allergies No Known Allergies Results Component Value Reference Range Notes A1C with Estimated Average G nirmal Reviewed date:01/04/2024 11:24:54 AM Interpretation: Performing Lab:, [facility], [address] [place] Notes/Report: glycemic control for adults with diabetes: <7.0 diabetes: >6.4 Increased risk for diabetes: 5.7 - 6.4 Estimated Average Glucose 114 Hemoglobin A1C 5.6 4.3-5.6 % Complete Blood Count Auto Di ff Reviewed date:01/04/2024 11:03:00 AM Interpretation: Performing Lab:, [facility], [address] [place] Notes/Report: condition;Obesity, class 2 Reason for Exam Screening for cardiovascular White Blood Count 5.1 3.8-11.6 10*3/uL Uncorrected WBC 5.1 3.8-11.6 10*3/uL Red Blood Count 5.01 3.60-5.00 Hemoglobin 15.5 11.8-15.4 g/dL Hematocrit 46.1 34.0-46.4 % Mean Corpuscular Volume 91.9 80-100 fL Mean Corpuscular Hemoglobin 31.0 24.7-34.3 pg Mean Corpuscular HGB Conc 33.7 32.0-35.0 g/dL Red Cell Distribution Width 13.4 11.9-15.3 % Platelet Count 210 150-450 10*3/uL Mean Platelet Volume 9.2 6.3-10.7 fL Neutrophils % (Auto) 46.3 . % Lymphocytes % (Auto) 35.1 . % Monocytes % (Auto) 11.0 . % Eosinophils % (Auto) 6.4 . % Basophils % (Auto) 1.2 . % NRBC% 0.1 0-0.5 /100{WBC} Neutrophils # (Auto) 2.4 1.8-7.7 10*3/uL Lymphocytes # (Auto) 1.8 1.00-4.8 10*3/uL Monocytes # (Auto) 0.6 0.0-0.8 10*3/uL Eosinophils # (Auto) 0.3 0.0-0.45 10*3/uL Basophils # (Auto) 0.1 0.0-0.2 10*3/uL Lipid Panel Reviewed date:01/04/2024 05:35:38 PM Interpretation: Performing Lab: Notes/Report: Reason for Exam Screening for cardiovascular condition;Obesity, class 2 Cholesterol 204 140-200 mg/dL Chol less than 200 mg/dl low risk Chol 201-239 mg/dl borderline risk Chol 240 mg/dl and greater high risk HDL Cholesterol 51 23-92 mg/dL HDL CHOL ATP-III CLASSIFICATION Cardiovascular Risk HDL > or equal to 60 mg/dL LOW HDL < 40 mg/dL HIGH Triglyceride w/Reflex 100 0-149 mg/dL TRIG ATP III CLASSIFICATION TRIG less than 150 mg/dL Normal TRIG 150-199 mg/dL Borderline high TRIG 200-500 mg/dL High TRIG greater than 500 mg/dL Very high Standard traceable to the Center for Disease Conrtrol and Prevention (CDC) test method. LDL Cholesterol,Calculated 133 0-100 mg/dL LDL ATP III CLASSIFICATION LDL less than 100 mg/dL Optimal LDL 100-129 mg/dL Near or above optimal LDL 130-159 mg/dL Borderline high LDL 160-189 mg/dL High LDL greater than 189 mg/dL Very high VLDL CHOLESTEROL 20 Chol/HDL Ratio 4.0 <5.0 CMP with reflex to A1C Reviewed date:01/04/2024 11:01:59 AM Interpretation: Performing Lab:, [facility], [address] [place] Notes/Report: Reason for Exam Screening for cardiovascular ADA recommended reference range condition;Obesity, class 2 Glucose, Employee SCR 102 70-100 mg/dL Blood Urea Nitrogen 14 7-25 mg/dL Creatinine 0.90 0.60-1.20 mg/dL Estimated GFR > 60.0 Sodium 140 136-145 mmol/L Potassium 3.9 3.5-5.1 mmol/L Chloride 105 98-107 mmol/L Carbon Dioxide 28.6 21.0-31.0 mmol/L Anion Gap 10.3 6.0-15.0 Calcium 9.1 8.6-10.3 mg/dL Total Protein 6.6 6.4-8.9 g/dL Albumin Level 4.1 3.5-5.7 g/dL Globulin 2.5 Albumin/Globulin Ratio 1.6 Bilirubin,Total 0.5 0.3-1.0 mg/dL Aspartate Amino Transferase 15 13-39 U/L Alanine Aminotransferase 11 7-52 U/L Alkaline Phosphatase 50 34-104 U/L IGP,Aptima HPV,CtNg Age Gdln Reviewed date:07/06/2024 09:42:51 AM Interpretation: Performing Lab:, [facility], [address] , [place] Notes/Report: Ingrid Tomlin MD, Note: Note 02 The Pap smear is [...] <-Panic Low,>-Panic High,A-Abnormal,AA-Critical Abnormal Performed at: 02 [facility] [address] [facility] [address] Ingrid Tomlin MD, . 02 [address] [facility] [address] Alayna Paz, Corporate Aircraft [employer] ([facility]) 01 =[facility] QC reviewed by: 02 Performed at: Cornel Wakefield, Corporate Aircraft Mechanic ([facility]) Performed by: 02 <-Panic Low,>-Panic High,A-Abnormal,AA-Critical Abnormal Focus Puller: Ingrid Tomlin MD, Phone: [phone] cells (endocervical component) are present. L-Low Normal,H-High Normal,LL-Alert Low,HH-Alert High [address] [place] [address], [place] [phone] Satisfactory for evaluation. Endocervical and/or squamous metaplastic FLAG LEGEND: Performed at: [facility] Specimen adequacy: 02 Focus Puller: Ingrid Tomlin MD, Phone: [phone] THIS SPECIMEN WAS RESCREENED PART OF OUR VP PROGRAM. Age Algo ACOG Ade... 30-[address] [place] [address], [place] [phone] NEGATIVE FOR INTRAEPITHELIAL LESION OR MALIGNANCY. No. of containers..01 ThinPrep Vial Performed at: =[facility] DIAGNOSIS: 02 Clinician Provided Cytology Information without differentiation. Specimen Comment: [id number] risk HPV types (16,18,31,33,35,39,45,51,52,56,58,59,66,68) TESTS RESULT FLAG UNITS REF RANGE LAB TESTS RESULT FLAG UNITS REF RANGE LAB Reason for Exam Cervical cancer screening This nucleic acid amplification test detects fourteen high- IGP, Age Gdln Note . Pap Image Guided Note . PAP HPV HR Negative Negative Reason For Referral No Information Medications Medication SIG (Take, Route, Frequency, Duration) Notes Start Date End Date Status Albuterol Sulfate HFA 108 (90 Base) MCG/ACT 1 puff as needed Inhalation Every 4-6 hours as needed; Duration: 90 days Active Montelukast Sodium 10 MG 1 tablet Orally Once a day; Duration: 90 days Active Propranolol HCl ER 60 MG 1 capsule Orall y Once a day; Duration: 90 days Active Venlafaxine HCl ER 37.5 MG 1 capsule wit h food Orally Once a day; Duration: 90 days Active tiZANidine HCl 4 MG Twice a day Orally twice a day; Duration: 30 days As needed PRN Active Gabapentin 300 MG 1 capsule Orally 3 times a day; Duration: 30 days As needed PRN Active traZODone HCl 100 MG 1 tablet at bedtime Orally Once a day as needed Active ARIPiprazole 2 MG 1 tablet Orally Once a day; Duration: 90 days Active Social History AUDIT-C (Standard) Question Answer Notes Did you have a drink contain ing alcohol in the past year? Yes How often did you have a dri nk containing alcohol in the past year? Monthly or less (1 point) How many drinks did you have on a typical day when you were drinking in the past year? 1 or 2 drinks (0 point) How often did you have six o r more drinks on one occasion in the past year? Less than monthly (1 point) Points 2 Interpretation Negative Problems Problem Type SNOMED Code ICD Code Onset Dates Problem Status W/U Status Risk Notes Problem Tobacco user (101613332) Nicotine dependence, unspecified, uncomplicated (F17.200) Active confirmed Problem Elevated blood pressure reading without diagnosis of hypertension (708026818) Elevated blood pressure reading without diagnosis of hypertension (R03.0) Active confirmed Problem Neuropathic pain (964640917) Neuropathic pain (M79.2) Active confirmed Problem Chronic insomnia (100845549) Chronic insomnia (F51.04) Active confirmed Problem Migraine (16164704) Migraine without status migrainosus, not intractable, unspecified migraine type (G43.909) Active confirmed Problem COPD - Chronic obstructive pulmonary disease (30919513) Chronic obstructive pulmonary disease, unspecified COPD type (J44.9) Active confirmed Problem Depressive disorder (disorder) (03385117) Depression, unspecified depression type (F32.A) Active confirmed Vital Signs Heart Rate 68 /min 09/01/2024 Temperature 98.3 degrees Fahrenheit 09/01/2024 Respiratory Rate 20 /min 09/01/2024 Oximetry 95 % 09/01/2024 Blood pressure diastolic 90 mm Hg 09/01/2024 Height 65 in 09/01/2024 Blood pressure systolic 138 mm Hg 09/01/2024 Weight 241.2 lbs 09/01/2024 BMI 40.13 kg/m2 09/01/2024 Encounters Encounter Location Date Provider Diagnosis [facility] [address] [place] [address] 12/18/2023 [place] [address] [place] [address] 01/04/2024 [place] [address] [place] [address] 01/08[facility]2024 [facility] [address] [place] [address] 03/31/2024 [facility] [address] [place] [address] 05/20/2024 [facility], unspecified asthma severity, unspecified whether complicated, unspecified whether persistent J45.909 and Chronic depression F32.A [facility] [address] [place] [address] 07/01/2024 [place] [address] [place] [address] 07/03/2024 Daniele Ring [place] [address] [place] [address] 06/28/2024 Daniele Ring Cervical cancer screening Z12.4 ; Well woman exam Z01.419 ; Breast cancer screening declined Z53.20 ; Elevated blood pressure reading without diagnosis of hypertension R03.0 and Chronic obstructive pulmonary disease, unspecified COPD type J44.9 [place] [address] [facility] [place] [address] 12/18/2023 Daniele Ring Acute non-recurrent sinusitis, unspecified location J01.90 ; Chronic depression F32.A ; Chronic insomnia F51.04 ; Asthma, unspecified asthma severity, unspecified whether complicated, unspecified whether persistent J45.909 ; Neuropathic pain M79.2 ; Migraine without status migrainosus, not intractable, unspecified migraine type G43.909 ; Screening for cardiovascular condition Z13.6 and Obesity, class 2 E66.812 [facility] [address] [facility] [place] [address] 01/08/2024 Daniele Ring Migraine without sta tus migrainosus, not intractable, unspecified migraine type G43.909 ; Acute sinusitis, recurrence not specified, unspecified location J01.90 and Nicotine dependence, unspecified, uncomplicated F17.200 [facility] [address] [facility] [place] [address] 05/24/2024 Daniele Ring Migraine without sta tus migrainosus, not intractable, unspecified migraine type G43.909 ; Neuropathic pain M79.2 ; Depression, unspecified depression type F32.A ; Elevated blood pressure reading without diagnosis of hypertension R03.0 ; Asthma, unspecified asthma severity, unspecified whether complicated, unspecified whether persistent J45.909 and Chronic insomnia F51.04 [place] [address] [facility] [place] [address] 09/01/2024 Mirta Ash Neuropathic pain M79 .2 ; Chronic insomnia F51.04 and Elevated blood pressure reading without diagnosis of hypertension R03.0 Assessments Encounter Date Diagnosis (ICD Code) Assessment Notes Treatment Notes Treatment Clinical Notes Section Notes 12/18/2023 Acute non-recurrent sinusitis, unspecified location (ICD-10 - J01.90) Pt sx consistent with acute sinusitis. Given that the sx have not improved at all over the past 2 weeks, I do feel abx are warranted at this time. Explained this to the pt who is agreeable. Will treat with amoxicillin and Tessalon Perles for further sx relief. Also encouraged rest and increased hydration. She was advised to call our office in 5-7 days if her sx worsen or do not improve. Patient states an understanding and is agreeable 12/18/2023 Chronic depression (ICD-10 - F32.A) Well controlled, tolerating medication well. Continue current regimen 05/20/2024 Asthma, unspecified asthma severity, unspecified whether complicated, unspecified whether persistent (ICD-10 - J45.909) 06/28/2024 Well woman exam (ICD-10 - Z01.419) Well woman exam completed today, no significant abnormalities found. Pap performed in office and will notify pt of results when we receive them. Discussed obtaining STI testing today, but pt declined this as she has been with her same female partner consistently. Encouraged continued healthy diet and lifestyle. As noted below, mammogram was declined by pt. Her labs are UTD 06/28/2024 Cervical cancer screening (ICD-10 - Z12.4) See above plan. 09/01/2024 Neuropathic pain (ICD-10 - M79.2) Patient reports neuropathic pain comes in flares, but when it happens, it is well controlled with the gabapentin and tizanidine. These flares last approximately 2-4 days. 05/24/2024 Neuropathic pain (ICD-10 - M79.2) Well controlled, tolerating medication well. She states she only uses the tizanidine and gabapentin on an as-needed basis. [place] was reviewed and it appears she last filled gabapentin on 10/13/2023 so it seems she does not need either of these very often. Continue current regimen 05/24/2024 Migraine without status migrainosus, not intractable, unspecified migraine type (ICD-10 - G43.909) Well controlled, tolerating medication well. Continue current regimen 01/08/2024 Migraine without status migrainosus, not intractable, unspecified migraine type (ICD-10 - G43.909) These appear to be well-controlled at this time. I suspect her headache is more related to her continued sinus infection rather than migrainous in nature. Refill of propranolol sent today 01/08/2024 Acute sinusitis, recurrence not specified, unspecified location (ICD-10 - J01.90) Patient with persistent (slightly worsening) sinus symptoms despite completing a 7-day course of amoxicillin that started on 12/18/2023. Her lungs are clear to auscultation on physical exam and I have low suspicion for pneumonia. Nonetheless given her persistent symptoms, I did offer to obtain a chest x-ray, however patient declined. I did also offer to obtain nasal swab for [facility] send out, but she declined this as well. I do still feel this is likely infectious in nature and a second course of antibiotics is warranted. I recommended doxycycline. Discussed the risks (including but not limited to photosensitivity), benefits, side effects and alternatives to treatment and she would like to proceed with the doxycycline. Will send in for 10-day course. I will also send in for dextromethorphan and she states the Tessalon Perles did not help her cough at all. Encouraged continued rest and increased hydration with use of [id number] analgesics as needed. I also advised her to call our office in 7-10 days if her symptoms have not improved at all (or if they worsen) at which point I do feel it would be reasonable to obtain a CT of the sinuses and consider referral to ENT. She is to call our office or seek care in the ER with any new, concerning worsening symptoms. Patient states understanding and is agreeable to plan of care 05/24/2024 Depression, unspecified depression type (ICD-10 - F32.A) Well controlled, tolerating medication well. She has no suicidal or homicidal ideation. She was previously seeing a psychiatric provider, but upon moving is no longer seeing that psychiatric provider. She does still follow with a counselor. She is inquiring if I would be willing to take over managing her depression with venlafaxine and aripiprazole. I am comfortable with these medications especially since her depression is well-controlled currently, so I will take over management. Encouraged her to continue following with her counselor. Continue current regimen 01/08/2024 Nicotine dependence, unspecified, uncomplicated (ICD-10 - F17.200) 09/01/2024 Chronic insomnia (ICD-10 - F51.04) Discussed lifestyle modifications that she is doing and can start doing. She finds that ASMR videos helps distract her from her racing thoughts. She is also still taking trazodone 100mg which has helped over the years. Will continue trazodone at current dose. 06/28/2024 Breast cancer screening declined (ICD-10 - Z53.20) Discussed risks (including undiagnosed cancer) and benefits of screening for breast cancer. I recommended screening, however despite my recommendation the pt declined 05/20/2024 Chronic depression (ICD-10 - F32.A) 12/18/2023 Chronic insomnia (ICD-10 - F51.04) Well controlled, tolerating medication well. Continue current regimen 12/18/2023 Asthma, unspecified asthma severity, unspecified whether complicated, unspecified whether persistent (ICD-10 - J45.909) Pt reports hx of asthma - states she had a PFT many years ago and this is how she was diagnosed. Breathing well currently and seems well controlled. Continue with current regimen 06/28/2024 Elevated blood pressure reading without diagnosis of hypertension (ICD-10 - R03.0) Pt with initial elevated BP in office, however repeat was normal. It was elevated at last visit, but had not been previously. She has been having difficulty with the sizing of her home BP cuff and I believe is contributing to falsely elevated BP readings at home. We discussed options today and through shared decision making agreed to continue with healthy dietary and lifestyle changes as well as continuing to closely monitor. Signs and symptoms to seek urgent / emergent evaluation discussed. Discussed the importance of using a properly sized blood pressure cuff at home, checking this and bringing a log with her to her next visit. If BP is elevated at next visit and / or her home readings are elevated with a proper fitting cuff, would likely recommend initiating antihypertensive at that time. She is to call with any questions or concerns. Patient states an understanding and is agreeable 09/01/2024 Elevated blood pressure reading without diagnosis of hypertension (ICD-10 - R03.0) Discussed lifestyle modifications including DASH diet, exercise, and getting as good of sleep as possible. She will look for her new blood pressure cuff and call the office if her blood pressure is greater than 140/90 mmHg consistently. We will follow up for BP and lab check in 6 months unless she notices issues sooner. 05/24/2024 Elevated blood pressure reading without diagnosis of hypertension (ICD-10 - R03.0) Initial and repeat blood pressure were slightly elevated in the office today. At her prior visits she had well-controlled blood pressure readings. She does not check her blood pressure at home and the only medication she takes that would lower her blood pressure is propranolol. She does admit that she had increased stress at home this morning with her financial bills which could be contributing to the elevated BP today. She is asymptomatic in regard to her blood pressure at this time. Given that it was just a 1 office visit elevation, I do not feel any additional antihypertensive medications warranted at this time. We did discuss various healthy dietary and lifestyle changes to make to help improve her blood pressure (especially noting decreased dietary sodium intake) and I encouraged her to check her blood pressure at home and bring log with her to her next visit. She was given a handwritten prescription for blood pressure monitor prior to leaving the office today. She is to call with any questions or concerns. Patient states understanding and is agreeable with this plan of care 06/28/2024 Chronic obstructive pulmonary disease, unspecified COPD type (ICD-10 - J44.9) PFTs performed 06/04/24 showed moderate fixed obstruction consistent with COPD. Fortunately, she is asymptomaic at rest, has no nighttime sx, no exacerbations requiring treatment in the past year and has not been hospitalized for her breathing. I suspect her SOB with going up and down stairs that quickly resolves is secondary to deconditiong and her COPD. We discussed maitenance inhalers today, however pt declined this and she would like to continue with as needed albuterol alone as well as implementing healthy dietary and lifestyle changes. I have extremely low suspicion for ACS. She was advised to call our office or seek care in the emergency department if she develops any new, concerning or worsening symptoms. We will continue to monitor and can re-consider maitenance inhaler if her sx change or worsen. She is to call with any questions or concerns. Patient states an understanding and is agreeable 12/18/2023 Neuropathic pain (ICD-10 - M79.2) Well controlled, tolerating medication well. Continue current regimen. States this pain is from sciatica and she uses the tizanidine as needed only 05/24/2024 Asthma, unspecified asthma severity, unspecified whether complicated, unspecified whether persistent (ICD-10 - J45.909) Appears relatively well-controlled at this time. She has no symptoms today regarding her breathing. She states she uses her albuterol couple times per week, but requires it more frequently based on the weather and how active she is. She states she does not have any nighttime awakenings. She does not believe she has ever had formal PFTs done. For now, we will continue with daily Singulair and as needed albuterol. However, I did recommend obtaining PFTs to evaluate her breathing further to ensure we are actually treating asthma and consider maintenance therapy on the results and her symptoms. She states she was previously using steroid inhaler, but this reportedly made her breathing worse so she stopped it. For now, continue current regimen. She is to call with any questions or concerns. Patient states an understanding and is agreeable 05/24/2024 Chronic insomnia (ICD-10 - F51.04) Well controlled, tolerating medication well. Continue current regimen 12/18/2023 Migraine without status migrainosus, not intractable, unspecified migraine type (ICD-10 - G43.909) Well controlled, tolerating medication well. Continue current regimen 12/18/2023 Screening for cardiovascular condition (ICD-10 - Z13.6) 12/18/2023 Obesity, class 2 (ICD-10 - E66.812) 01/08/2024 Other Body Mass Index : Care Instructions material was printed 05/24/2024 Other Body Mass Index : Care Instructions material was printed, Learning About Benefits of Quitting Smoking material was printed 06/28/2024 Other Plan Of Treatment No Information Insurance Providers Payer Name Payer Address Payer Phone Subscriber Number Group Number Insured Name Patient Relationship to Insured Coverage Start Date Coverage End Date [employer] [address] [address] [place] [phone] [id number] LOPEZ Self - patient is the insured Medical (General) History Medical History History ICD Code Asthma Seasonal Allergies Sciatica Depression Surgical History Surgery Date(Month/Year) left oopherectomy 2019
--- NOTE | 2024-10-05 19:47 | PC.NURSE ---
Area to right forearm cleansed with NS, medicated ointment applied as ordered, covered with telfa and secured with kerlex.
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
[2024-10-05] MEDS: MUPIROCIN 2% OINTMENT 22 GRAM TUBE 1 APPLIC TOPICAL (19:51)
[2024-10-05] MEDS: HYDROCODONE/ACET 5-325 MG TABLET 1 TAB PO (20:06)
[2024-10-05] MEDS: DIPHTH,PERTUSS(ACELL),TET VAC 0.5 ML SYRINGE IM (20:07)
== END 2024-10-05 20:19 | disposition home or self-care (01) ==
PROVIDERS: Emergency Provider Emergency Medicine
DX: T22.111A Burn of first degree of right forearm, initial encounter (principal); X02.8XXA Other exposure to controlled fire in building or structure, initial encounter; Y93.G2 Activity, grilling and smoking food; Z23 Encounter for immunization
CPT/HCPCS: 90471; 99283